=== PATIENT | female | born 1950 | race Two or more races ===

== ENCOUNTER 2024-04-08 17:53 | Inpatient (IN) | payer OTHER, MEDICAID ==
[~2024-04-08] VITALS: Ht 157.5 cm; Wt 63.6 kg
--- NOTE | 2024-04-08 18:54 | ED.PDOC ---
History of Present Illness HPI Comments 73 year old female presents to the ED with a chief complaint of abdominal pain onset today (04/08/24). Patient states she had a colostomy placed about 30 years ago due to cancer and recently noticed she was having bowel movements from rectum, she had not for 30 years due to colostomy. Daughter states patient was seen at [facility] urgent care today for abdominal pain, back pain, bowel movements, had lab work and XRAY done. Daughter states patient was told she was dehydrated, Potassium level was low, and was sent for a CT scan at [facility]. Patient was told she had inflammation of colon and rectum, was told by Dr. Crawford to come to ED. Patient rates pain /10. Denies chest pain, shortness of breath, fevers, chills, nausea, vomiting. No other symptoms or modifying factors present at this time. Chief Complaint: Wound Check Time Seen by MD: 18:26 Primary Care Provider: LUTHER Rios Notes: Medications, Allergies Allergies: Coded Allergies: NO KNOWN ALLERGIES (Unverified , 04/08/24) Information Source: Patient, Relative Mode of Arrival: Ambulatory Severity: Moderate Timing: Hours Duration: Since onset Prehospital treatment: None Past Medical History PAST MEDICAL HISTORY: Cancer Surgical History (Other): colostomy CLUB LICENSEE History: No Pertinent CLUB LICENSEE History Family History Family History: Unknown Social History Smoker: Non-Smoker Alcohol: Denies ETOH Use Drugs: Denies Drug Use Lives In: Home Constitutional: denies: chills, diaphoresis, fatigue, fever, malaise, sweats, weakness, others EENTM: denies: blurred vision, double vision, ear bleeding, ear discharge, ear drainage, ear pain, ear ringing, eye pain, eye redness, hearing loss, mouth pain, mouth swelling, nasal discharge, nose bleeding, nose congestion, nose pain, photophobia, tearing, throat pain, throat swelling, voice changes, others Respiratory: denies: cough, hemoptysis, orthopnea, SOB at rest, shortness of breath, SOB with excertion, stridor, wheezing, others Cardiovascular: denies: chest pain, dizzy spells, diaphoresis, Dyspnea on exertion, edema, irregular heart beat, left arm pain, lightheadedness, palpitations, PND, syncope, others Gastrointestinal: reports: abdominal pain; denies: abdomen distended, blood streaked bowels, constipated, diarrhea, dysphagia, difficulty swallowing, hemate mesis, melena, nausea, poor appetite, poor fluid intake, rectal bleeding, rectal pain, vomiting, others Genitourinary: denies: abnormal vagina bleeding, burning, dyspareunia, dysuria, flank pain, frequency, hematuria, incontinence, pain, , vagina discharge, urgency, others Neurological: denies: dizziness, fainting, headache, left sided numbness, left sided weakness, numbness, paresthesia, pre-existing deficit, right sided numbness, right sided weakness, seizure, speech problems, tingling, tremors, weakness, others Musculoskeletal: reports: back pain; denies: gout, joint pain, joint swelling, muscle pain, muscle stiffness, neck pain, others Integumetry: denies: bruises, change in color, change in hair/nails, dryness, laceration, lesions, lumps, rash, wounds, others Allergic/Immunocompromised: denies: Difficulty Healing, Frequent Infections, Hives, Itching, others Hematologic/Lymphatic: denies: anemia, blood clots, easy bleeding, easy bruising, swollen glands, others Endocrine: denies: excessive hunger, excessive sweating, excessive thirst, excessive urination, flushing, intolerance to cold, intolerance to heat, unexplained weight gain, unexplained weight loss, others Psychiatric: denies: anxiety, bipolar disorder, depression, hopeless, panic disorder, schizophrenia, sleepless, suicidal, others All Other Systems: Reviewed and Negative Physical Exam General Appearance: No Apparent Distress, Normal HEENT: Normal ENT Inspection, Pharynx Normal, TMs Normal Neck: Full Range of Motion, Non-Tender, Normal, Normal Inspection Respiratory: Chest Non-Tender, Lungs Clear, No Accessory Muscle Use, No Respiratory Distress, Normal Breath Sounds Cardiovascular: No Edema, No JVD, No Murmur, No Gallop, Normal Peripheral Pulses, Regular Rate/Rhythm Breast Exam: Deferred Gastrointestinal: Diffuse (tenderness ), No Organomegaly, Tenderness (diffused ) Genitalia: Deferred Pelvic: Deferred Rectal: Deferred Extremities: No calf tenderness, Normal capillary refill, Normal inspection, Normal range of motion, Non-tender, No pedal edema Musculoskeletal : Apperance: Normal Neurologic: Alert, conservation policy analyst II-XII nml as Tested, No Motor Deficits, Normal Affect, Normal Mood, No Sensory Deficits Cerebellar Function: Normal Reflexes: Normal Skin: Dry, Normal Color, Warm Lymphatic: No Adenopathy Was a procedure done? Was a procedure done?: No Differential Dx Considerations may include: Electrolyte abnormalities, gastroenteritis, colitis, viral syndrome X-Ray, Labs, Meds, VS Vital Signs Date Time Temp Pulse Resp B/P (MAP) Pulse Ox O2 Delivery O2 Flow Rate FiO2 04/09/24 00:56 55 18 129/71 04/09/24 00:40 55 18 98 Room Air* 0 21 04/09/24 00:40 98.2 55 18 129/71 (90) 98 98.2 04/08/24 18:07 97.8 79 20 181/89 (119) 95 Lab Test 04/08/24 19:00 Range/Units White Blood Count 7.2 4.4-10.8 10^3/uL Red Blood Count 4.57 4.0-5.20 10^6/uL Hemoglobin 12.6 12.2-16.2 g/dL Hematocrit 38.9 36.0-46.0 % Mean Corpuscular Volume 85.2 80.0-100.0 fL Mean Corpuscular Hemoglobin 27.6 L 28.0-32.0 pg Mean Corpuscular Hemoglobin Concent 32.4 32.0-36.0 g/dL Red Cell Distribution Width 13.4 11.8-14.3 % Platelet Count 278 140-450 10^3/uL Mean Platelet Volume 8.0 6.9-10.8 fL Neutrophils (%) (Auto) 62.5 37.0-80.0 % Lymphocytes (%) (Auto) 25.3 10.0-50.0 % Monocytes (%) (Auto) 8.7 0.0-12.0 % Eosinophils (%) (Auto) 2.7 0.0-7.0 % Basophils (%) (Auto) 0.8 0.0-2.0 % Neutrophils # (Auto) 4.5 1.6-8.6 10 ^3/uL Lymphocytes # (Auto) 1.8 0.4-5.4 10 ^3/uL Monocytes # (Auto) 0.6 0-1.3 10 ^3/uL Eosinophils # (Auto) 0.2 0-0.8 10 ^3/uL Basophils # (Auto) 0.1 0-0.2 10 ^3/uL Nucleated Red Blood Cells 0.5 % Platelet Estimate Adequate Sodium Level 140 136-145 mmol/L Potassium Level 3.1 L 3.5-5.1 mmol/L Chloride Level 107 98-107 mmol/L Carbon Dioxide Level 24 20-31 mmol/L Anion Gap 9 5-15 Blood Urea Nitrogen 24 H 9-23 mg/dL Creatinine 1.53 H 0.550-1.02 mg/dL Glomerular Filtration Rate Calc 35 >90 mL/min BUN/Creatinine Ratio 15.7 10.0-20.0 Serum Glucose 101 74-106 mg/dL Lactic Acid Level 1.4 0.4-2.0 mmol/L Calcium Level 9.6 8.7-10.4 mg/dL Current Medications Medications (Trade) Dose Ordered Sig/Ta Route Start Time Stop Time Status Last Admin Ondansetron HCl (Zofran) 4 mg ONCE ONCE IV 04/08/24 19:00 04/08/24 19:01 DC 04/09/24 00:57 Morphine Sulfate 4 mg ONCE ONCE IV 04/08/24 19:00 04/08/24 19:01 DC 04/09/24 00:56 Sodium Chloride 1,000 ml @ 1,000 mls/hr Q1H ONCE IV 04/08/24 19:00 04/08/24 19:59 DC 04/09/24 01:00 Metronidazole 100 ml @ 100 mls/hr ONCE ONCE IV 04/08/24 19:00 04/08/24 19:59 DC 04/09/24 00:57 Time of 1ST Reevaluation: 18:56 Reevaluation 1ST: Unchanged Patient Education/Counseling: Diagnosis, Treatment, Prognosis Family Education/Counseling: Diagnosis, Treatment, Prognosis Additional Information The following tests were ordered, and results were reviewed by me: BMP, CBC, UA, LA W/ REFLEX, BLOOD CULTURE Additional Information was gathered from interviewing the following independent historians: DAUGHTER I discussed treatment and results with medical personnel and: patient, DAUGHTER Departure 1 Departure Time of Disposition: 05:37 (Patient presented with abdominal pain that was concerning for possible appendicits, gastritis, cholecystitis, colitis, gastroenteritis, sbo, or orther possible surgical emergency. Data: 1. I ordered and reviewed the result of at least 3 labs including a CBC, BMP, and Urinalysis. 2. I independently interpreted the following tests: CT Abdoment and Pelvis from outside facility is concerning for diffuse colitis .Risk:This patient has a high risk of morbidity due to further diagnostic testing or treatment and may suffer from an acute abdominal process disorder. Workup reveals diffuse colitis and electrolyte abnormalities and patient should be admitted for further workup. and possible expert consultation. Patient is not septic) Impression: Primary Impression: Pancolitis Additional Impressions: Intractable abdominal pain Generalized weakness Disposition: ADMITTED INPATIENT Admit to: Med Surg Condition: Serious Critical Care Note Critical Care Time?: Yes Critical care comment: Intractable abdominal pain Authorized and Performed by: Yury Hall MD Total critical care time: Approximately 47_ minutes Due to a high probability of clinically significant, life threatening deterioration, the patient required my highest level of preparedness to intervene emergently and I personally spent this critical care time directly and personally managing the patient. This critical care time included obtaining a history; examining the patient; pulse oximetry; ordering and review of studies; arranging urgent treatment with development of a management plan; evaluation of patient's response to treatment; frequent reassessment; and, discussions with other providers. This critical care time was performed to assess and manage the high probability of imminent, life-threatening deterioration that could result in multi-organ failure. It was exclusive of separately billable procedures and treating other patients and teaching time. Please see my other sections and the rest of the note for further information on patient assessment and treatment. Stability Stability form required: No I personally scribed for YURY HALL MD ([email or web address]) on 04/08/24 at 18:54. Electronically submitted by Tala Harper ([email or web address]). I personally scribed for YURY HALL MD ([email or web address]) on 04/08/24 at 19:00. Electronically submitted by Tala Harper ([email or web address]). I personally scribed for YURY HALL MD ([email or web address]) on 04/08/24 at 19:07. El ectronically submitted by Tala Harper ([email or web address]). YURY HALL MD Apr 08, 2024 18:54
[2024-04-08 19:35] LABS: Basophils # (auto) 0.1 10 ^3/uL (0-0.2); Basophils % (auto) 0.8 % (0.0-2.0); Eosinophils # (auto) 0.2 10 ^3/uL (0-0.8); Eosinophils % (auto) 2.7 % (0.0-7.0); Hematocrit 38.9 % (36.0-46.0); Hemoglobin 12.6 g/dL (12.2-16.2); Lymphocytes # (auto) 1.8 10 ^3/uL (0.4-5.4); Lymphocytes % (auto) 25.3 % (10.0-50.0); Mean Corpuscular Hemoglobin 27.6 pg (28.0-32.0); Mean Corpuscular Hgb Conc. 32.4 g/dL (32.0-36.0); Mean Corpuscular Volume 85.2 fL (80.0-100.0); Monocytes # (auto) 0.6 10 ^3/uL (0-1.3); Monocytes % (auto) 8.7 % (0.0-12.0); Neutrophils # (auto) 4.5 10 ^3/uL (1.6-8.6); Neutrophils % (auto) 62.5 % (37.0-80.0); Nucleated Red Blood Cells % 0.5 %; Platelet Count (auto) 278 10^3/uL (140-450); Red Blood Cells 4.57 10^6/uL (4.0-5.20); Red Cell Distribution Width 13.4 % (11.8-14.3); White Blood Cell 7.2 10^3/uL (4.4-10.8)
[2024-04-08 19:47] LABS: Sodium 140 mmol/L (136-145)
[2024-04-08 19:48] LABS: Anion Gap 9 (5-15); Calcium 9.6 mg/dL (8.7-10.4); Carbon Dioxide 24 mmol/L (20-31)
[2024-04-08 19:53] LABS: BUN/Creatinine Ratio 15.7 (10.0-20.0); Glucose 101 mg/dL (74-106)
[2024-04-08 19:54] LABS: Blood Urea Nitrogen 24 mg/dL (9-23); Chloride 107 mmol/L (98-107); Potassium 3.1 mmol/L (3.5-5.1)
[2024-04-08 20:22] LABS: Platelet Estimate Adequate
[2024-04-09 00:40] VITALS: PULSE 55; RESP 18; O2SAT 98
[2024-04-09] MEDS: MORPHINE SULFATE 4 MG/ML SYR/VIAL IV ONE (00:56)
[2024-04-09] MEDS: ONDANSETRON HCL 4 MG/2 ML VIAL IV ONE (00:57)
[2024-04-09] MEDS: metroNIDAZOLE 500MG/100ML 100 ML IV ONE (00:57)
[2024-04-09] MEDS: SODIUM CHLORIDE 0.9% 1,000 ML IV ONE (01:00)
[2024-04-09] MEDS ORDERED: NITROGLYCERIN 0.4 MG SL TAB SL PRN (01:30)
[2024-04-09] MEDS ORDERED: ONDANSETRON HCL 4 MG/2 ML VIAL IV PRN (01:30)
[2024-04-09] MEDS ORDERED: MORPHINE SULFATE INJ 2 MG/ml SYRG IV PRN (01:30)
[2024-04-09] MEDS ORDERED: DOCUSATE SOD 100 MG CAP PO PRN (01:30)
[2024-04-09] MEDS: SODIUM CHLORIDE 0.9% 1,000 ML IV SCH (01:30)
[2024-04-09] MEDS: POTASSIUM CHL 20 Meq TABLET PO ONE (03:01)
[2024-04-09] MEDS: ceFAZolin 2 GM/D5W50ml 50 ML IV ONE (03:05)
--- NOTE | 2024-04-09 04:07 | DVHHP2 ---
LIANNE GONZALEZ [employer] SYSTEM ADMINISTRATOR 04/09/24 0407: History of Present Illness Reason for Visit: Rectal discharge, Sent in from urgent care History of Present Illness Information in this HPI is limited due to the patient's cognitive status. It is acquired with the assistance of the patient's daughters. 73-year-old female with past medical history of hypertension, dementia, lower abdominal colostomy was sent in from urgent care . Patient went into urgent care with complaints of rectal BM / discharge and lower abdominal discomfort. Patient has had a colostomy for 30 years due to colon cancer. Patient was treated with IV fluids at urgent care. And then sent to [facility] radiology for imaging. CT of the abdomen and pelvis presented severe pancolitis and proctitis. Urgent Care paperwork stated: Urgent care physician had communicated with Dr. Yvette rios regarding inpatient admission. 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 GI: Other (Colostomy, colon cancer) Heme/Onc: Cancer Smoke: No ALCOHOL: none Drugs: None Lives: with Family Review of Systems Constitutional: No: Fever, Chills, Sweats, Weakness, Malaise, Other Eyes: No: Pain, Vision change, Conjunctivae inflammation, Eyelid inflammation, Other, Redness ENT: No: Ear pain, Ear discharge, Nose pain, Nose discharge, Nose congestion, Mouth pain, Mouth swelling, Throat pain, Throat swelling, Other Respiratory: No: Cough, Dry, Shortness of breath, SOB with excertion, Wheezing, Hemoptysis, Pleuritic Pain, Sputum, Wheezing, Other Gastrointestinal: Abdominal Pain, Other (Bowel movement through colostomy and rectum); No: Nausea, Vomiting, Diarrhea, Constipation, Melena, Hematochezia Genitourinary: No Dysuria, No Frequency, No Incontinence, No Hematuria, No Retention, No Other Musculoskeletal: No: other, neck pain, shoulder pain, arm pain, back pain, hand pain, leg pain, foot pain Skin: No: Rash, Lesions, Jaundice, Bruising, Other Neurological: No: Weakness, Numbness, Incoordination, Change in speech, Confusion, Seizures, Other Allergies: Coded Allergies: NO KNOWN ALLERGIES (Unverified , 04/08/24) Medications Current Medications Medications Dose Ordered Sig/Ta Route Start Time Stop Time Status Last Admin Dose Admin Sodium Chloride 1,000 ml @ 60 mls/hr [id number] IV 04/09/24 01:30 Docusate Sodium 100 mg BIDPRN PRN PO 04/09/24 01:30 Acetaminophen 650 mg Q6HP PRN PO 04/09/24 01:30 Ondansetron HCl 4 mg Q4HP PRN IV 04/09/24 01:30 Nitroglycerin 0.4 mg Q5MINP PRN SL 04/09/24 01:30 Morphine Sulfate 2 mg Q30M PRN IV 04/09/24 01:30 Metronidazole 100 ml @ 100 mls/hr Q8HR IV 04/09/24 06:00 Ceftriaxone Sodium 50 ml @ 100 mls/hr DAILY IV 04/09/24 10:00 Donepezil HCl 5 mg DAILY PO 04/09/24 10:00 Nifedipine 30 mg DAILY PO 04/09/24 10:00 Exam Vital Signs Vital Signs Date Time Temp Pulse Resp B/P (MAP) Pulse Ox O2 Delivery O2 Flow Rate FiO2 04/09/24 00:56 55 18 129/71 04/09/24 00:40 98 Room Air* 0 21 04/09/24 00:40 98.2 98.2 General Appearance: Alert (At baseline, responds appropriately), Cooperative, mild distress HEENT: Atraumatic, PERRLA, EOMI Respiratory: Clear to auscultation, Normal air movement Cardiovascular: Regular rate, Normal S1, Normal S2 Abdominal: Soft, Other (Diffuse tenderness) Extremities: No clubbing, No cyanosis, No edema Skin: No rashes, No breakdown Neuro: Normal gait, Normal speech, Strength at 5/5 X4 ext Psych/Mental Status: Mental status NL, Mood NL Labs/Xrays Labs Test 04/08/24 19:00 Range/Units White Blood Count 7.2 4.4-10.8 10^3/uL Red Blood Count 4.57 4.0-5.20 10^6/uL Hemoglobin 12.6 12.2-16.2 g/dL Hematocrit 38.9 36.0-46.0 % Mean Corpuscular Volume 85.2 80.0-100.0 fL Mean Corpuscular Hemoglobin 27.6 L 28.0-32.0 pg Mean Corpuscular Hemoglobin Concent 32.4 32.0-36.0 g/dL Red Cell Distribution Width 13.4 11.8-14.3 % Platelet Count 278 140-450 10^3/uL Mean Platelet Volume 8.0 6.9-10.8 fL Neutrophils (%) (Auto) 62.5 37.0-80.0 % Lymphocytes (%) (Auto) 25.3 10.0-50.0 % Monocytes (%) (Auto) 8.7 0.0-12.0 % Eosinophils (%) (Auto) 2.7 0.0-7.0 % Basophils (%) (Auto) 0.8 0.0-2.0 % Neutrophils # (Auto) 4.5 1.6-8.6 10 ^3/uL Lymphocytes # (Auto) 1.8 0.4-5.4 10 ^3/uL Monocytes # (Auto) 0.6 0-1.3 10 ^3/uL Eosinophils # (Auto) 0.2 0-0.8 10 ^3/uL Basophils # (Auto) 0.1 0-0.2 10 ^3/uL Nucleated Red Blood Cells 0.5 % Platelet Estimate Adequate Sodium Level 140 136-145 mmol/L Potassium Level 3.1 L 3.5-5.1 mmol/L Chloride Level 107 98-107 mmol/L Carbon Dioxide Level 24 20-31 mmol/L Anion Gap 9 5-15 Blood Urea Nitrogen 24 H 9-23 mg/dL Creatinine 1.53 H 0.550-1.02 mg/dL Glomerular Filtration Rate Calc 35 >90 mL/min BUN/Creatinine Ratio 15.7 10.0-20.0 Serum Glucose 101 74-106 mg/dL Lactic Acid Level 1.4 0.4-2.0 mmol/L Calcium Level 9.6 8.7-10.4 mg/dL Assessment/Plan Assessment/Plan Severe Pancolitis / proctitis JOHNNIE unknown CKD Hypokalemia Hypertension Hx dementia Plan Admit medical floor Consult ID. IV ABX. Blood cultures pending Gastroenterology consult. Monitor BMP. Trend BUN/creatinine. Correct electrolytes as needed. Continue home medication. Clear liquid diet GI ppx protonix / DVT ppx scd Plan discussed with: Patient, Daughter My Orders Orders - LIANNE GONZALEZ NP Procedure Category Date Status Time Admit ADMIT 04/09/24 Transmitted 01:23 Code Status CODE 04/09/24 Transmitted 01:23 Vital Signs DAGMAR 04/09/24 In Process 01:23 Review Orders With DAGMAR 04/09/24 In Process Adm. 01:23 Encourage Activity As DAGMAR 04/09/24 In Process Tolerate 01:23 Sodium Chloride 0.9% PHA 04/09/24 In Process 01:30 Oxygen By Face Mask RT 04/09/24 Transmitted 01:23 Docusate Sodium PHA 04/09/24 In Process Capsule (Colace 01:30 Acetaminophen Tablet PHA 04/09/24 In Process (Tylenol Tablet) 01:30 Notify Of Changes DAGMAR 04/09/24 In Process From Base 01:23 Advance Directive DAGMAR 04/09/24 In Process 01:23 Basic Metabolic Panel LAB 04/09/24 Logged 05:00 Basic Metabolic Panel LAB 04/10/24 Verified 05:00 Basic Metabolic Panel LAB 04/11/24 Verified 05:00 Basic Metabolic Panel LAB 04/12/24 Verified 05:00 Basic Metabolic Panel LAB 04/13/24 Verified 05:00 Complete Blood Count LAB 04/09/24 Logged 05:00 Complete Blood Count LAB 04/10/24 Verified 05:00 Complete Blood Count LAB 04/11/24 Verified 05:00 Complete Blood Count LAB 04/12/24 Verified 05:00 Complete Blood Count LAB 04/13/24 Verified 05:00 Patient Condition ORDERS 04/09/24 Transmitted 01:23 Allergies DAGMAR 04/09/24 In Process 01:23 Ondansetron Hcl PHA 04/09/24 In Process (Zofran) 01:30 Sequential DAGMAR 04/09/24 In Process Compression Device Nitroglycerin PHA 04/09/24 In Process Sublingual (Ntrostat 01:30 Morphine Sulfate PHA 04/09/24 In Process Injection 01:30 Stat Ekg For Chest DAGMAR 04/09/24 In Process Pain 01:23 Notify Of Changes DAGMAR 04/09/24 In Process From Base 01:23 Industrial Machine Operator For DAGMAR 04/09/24 In Process 24 Hours 01:23 Emergency Dysrhythmia DAGMAR 04/09/24 In Process Protocol 01:23 Rhythm Strips Once DAGMAR 04/09/24 In Process Every Shift 01:23 Oxygen By Nasal RT 04/09/24 Transmitted Cannula 01:23 Metronidazole PHA 04/09/24 In Process 500mg/100ml (Flagyl 06:00 Ceftriaxone 1gm/50ml PHA 04/09/24 In Process D5w (Rocephin) 10:00 Clear Liq Diet DIET 04/09/24 Transmitted Breakfast Donepezil Tablet PHA 04/09/24 In Process (Aricept Tablet) 10:00 Nifedipine Er PHA 04/09/24 In Process (Procardia Xl 10:00 *[facility] CONS 04/09/24 Transmitted 01:23 Date of Service: Apr 09, 2024 Billing Provider: MANDIE LONG MD Common Visit Codes: NOT BILLABLE MANDIE LONG MD 04/09/24 1144: Review of Systems Allergies: Coded Allergies: NO KNOWN ALLERGIES (Unverified , 04/08/24) Assessment/Plan Assessment/Plan Patient chart is reviewed and discussed with nurse practitioner. I agree with his evaluation, documentation, assessment and care plan as outlined. Plan discussed with: Other LIANNE GONZALEZ NP Apr 09, 2024 04:07 MANDIE LONG MD Apr 09, 2024 11:44
[2024-04-09] MEDS: metroNIDAZOLE 500MG/100ML 100 ML IV SCH (06:11)
[2024-04-09 06:56] LABS: Basophils # (auto) 0 10 ^3/uL (0-0.2); Basophils % (auto) 0.3 % (0.0-2.0); Eosinophils # (auto) 0.1 10 ^3/uL (0-0.8); Eosinophils % (auto) 1.6 % (0.0-7.0); Hemoglobin 12.2 g/dL (12.2-16.2); Lymphocytes # (auto) 1.7 10 ^3/uL (0.4-5.4); Mean Corpuscular Hemoglobin 27.6 pg (28.0-32.0); Mean Corpuscular Hgb Conc. 32.2 g/dL (32.0-36.0); Mean Corpuscular Volume 85.9 fL (80.0-100.0); Monocytes # (auto) 0.5 10 ^3/uL (0-1.3); Monocytes % (auto) 7.4 % (0.0-12.0); Neutrophils # (auto) 3.9 10 ^3/uL (1.6-8.6); Neutrophils % (auto) 63.7 % (37.0-80.0); Nucleated Red Blood Cells % 0.1 %; Platelet Count (auto) 319 10^3/uL (140-450); Red Blood Cells 4.42 10^6/uL (4.0-5.20); Red Cell Distribution Width 13.7 % (11.8-14.3); White Blood Cell 6.1 10^3/uL (4.4-10.8)
[2024-04-09 07:06] LABS: Anion Gap 12 (5-15); Carbon Dioxide 25 mmol/L (20-31); Chloride 106 mmol/L (98-107); Sodium 143 mmol/L (136-145)
[2024-04-09 07:07] LABS: Calcium 9.9 mg/dL (8.7-10.4)
[2024-04-09 07:12] LABS: BUN/Creatinine Ratio 16.4 (10.0-20.0); Blood Urea Nitrogen 22 mg/dL (9-23); Glucose 97 mg/dL (74-106)
[2024-04-09 07:13] LABS: Potassium 3.4 mmol/L (3.5-5.1)
[2024-04-09] MEDS: DONEPEZIL HYDROCHLORIDE 5 MG TAB PO SCH (10:00)
[2024-04-09] MEDS: NIFEdipine ER 30 MG TAB PO SCH (10:00)
[2024-04-09] MEDS: cefTRIAXone 1GM/50ML D5W 50 ML IV SCH (11:09)
[2024-04-09] MEDS: POTASSIUM EFFERVESENT TAB 25 MEQ PO ONE (13:08)
--- NOTE | 2024-04-09 19:26 | DVHINCON2 ---
GASTROENTEROLOGY CONSULTATION REASON FOR CONSULTATION: Evaluation of pancolitis. HISTORY OF PRESENT ILLNESS: The patient is a 73-year-old -[place] female with a past medical history significant for hypertension, type 2 diabetes, chronic kidney disease stage 3, thyroid nodule and supposed Crohn's disease diagnosed in 1979, status post permanent diverting colostomy, who was admitted for evaluation of acute onset abdominal pain and diarrhea for the past 3 weeks. The patient's daughter who is at bedside is the primary historian. The patient states that she has been experiencing severe diarrhea, both through the colostomy as opposed to the rectum for the past 3 weeks. Symptoms have been associated with some abdominal pain. The patient was seen in a local urgent care and given IV fluids. She was also referred to a local imaging center for a CT scan that showed severe pancolitis and proctitis. The patient was subsequently admitted to the hospital, where she was found to have a completely normal CBC. Basic metabolic panel was also unremarkable aside from a renal function of 1.53, BUN of 24. The patient states that she has a history of Crohn's, but has not been on medication for over 40 years. She reportedly had some sort of mass that required her to have a permanent diverting colostomy. She was seen in the outpatient setting in 11/2023 and recommended to undergo a diagnostic colonoscopy, which she deferred and decided not to do. Gastroenterology service has been asked for input regarding her symptoms. DRUG ALLERGIES: None listed. HOME MEDICATIONS: She is on eyedrops, donepezil, nifedipine, timolol, dorzolamide eyedrops, prednisolone eye drops, and moxifloxacin. PAST MEDICAL HISTORY: Hypertension, glaucoma, cataracts, prediabetes, memory loss, chronic kidney disease stage 3, supposed Crohn's disease, thyroid nodule. PAST SURGICAL HISTORY: Permanent diverting colostomy in , total hysterectomy, thyroidectomy, colonoscopy. Her last one was in the as well as the EGD in the . FAMILY HISTORY: Mother had kidney cancer. SOCIAL HISTORY: The patient denies drugs, alcohol, tobacco. REVIEW OF SYSTEMS: A 12-point review of systems as stated above in the HPI. Please see above for further details of pertinent positives. PHYSICAL EXAMINATION: VITAL SIGNS: Temperature 98, heart rate 62, respirations 20, blood pressure 139/59, O2 saturation 96%. GENERAL: This is a 73-year-old -[place]iber[place] female, no acute distress. She is awake, alert, oriented x3, sitting upright. HEENT: Unremarkable. CARDIOVASCULAR: Regular rhythm. RESPIRATORY: Clear to auscultation. GASTROINTESTINAL: Soft, nontender, nondistended. She has a diverting colostomy that appears to be intact, very small amount of liquid stool. EXTREMITIES: No clubbing, no cyanosis or edema. LABORATORY DATA: Basic metabolic panel within normal limits. BUN 22, creatinine 1.34. CBC is within normal limits. Imaging study from [facility] showed pancolitis and proctitis. ASSESSMENT: * Nonspecific pancolitis with proctitis. Differential diagnosis includes 3 mm colitis or pearson ulcerative colitis. * Acute renal failure. * Dehydration. * Hypertension. * Prediabetes. * Chronic kidney disease, stage 3. RECOMMENDATIONS: * Aggressive volume resuscitation. * Obtain stool culture to exclude infectious etiology. * Check fecal calprotectin. * If the patient's infectious etiologies are unremarkable, the patient may benefit from steroid therapy once a fecal calprotectin was obtained and infectious etiology ruled out. If the patient does not improve with other antibiotic or steroid measures, the patient may need to undergo a diagnostic colonoscopy through the stoma. DO MADINA Whitt TID: [id number] RECEIPT: [id number]
[2024-04-09 20:00] VITALS: PULSE 62; RESP 13; O2SAT 97
[2024-04-09] MEDS: MAGNESIUM SULFATE 1GM/100ML 100 ML IV SCH (22:28)
[2024-04-09] MEDS: POTASSIUM EFFERVESENT TAB 25 MEQ PO SCH (22:48)
[2024-04-10 06:45] LABS: Basophils # (auto) 0 10 ^3/uL (0-0.2); Basophils % (auto) 0.2 % (0.0-2.0); Eosinophils # (auto) 0.1 10 ^3/uL (0-0.8); Eosinophils % (auto) 1.8 % (0.0-7.0); Hematocrit 35.1 % (36.0-46.0); Hemoglobin 11.8 g/dL (12.2-16.2); Lymphocytes # (auto) 1.1 10 ^3/uL (0.4-5.4); Lymphocytes % (auto) 21.4 % (10.0-50.0); Mean Corpuscular Hgb Conc. 33.6 g/dL (32.0-36.0); Mean Corpuscular Volume 86.3 fL (80.0-100.0); Monocytes # (auto) 0.4 10 ^3/uL (0-1.3); Monocytes % (auto) 8.1 % (0.0-12.0); Neutrophils # (auto) 3.6 10 ^3/uL (1.6-8.6); Neutrophils % (auto) 68.5 % (37.0-80.0); Nucleated Red Blood Cells % 0.1 %; Platelet Count (auto) 248 10^3/uL (140-450); Red Blood Cells 4.07 10^6/uL (4.0-5.20); Red Cell Distribution Width 13.8 % (11.8-14.3); White Blood Cell 5.2 10^3/uL (4.4-10.8)
[2024-04-10 06:53] LABS: Chloride 105 mmol/L (98-107); Potassium 3.9 mmol/L (3.5-5.1); Sodium 141 mmol/L (136-145)
[2024-04-10 06:54] LABS: Anion Gap 11 (5-15); Carbon Dioxide 25 mmol/L (20-31)
[2024-04-10 06:59] LABS: BUN/Creatinine Ratio 11.7 (10.0-20.0); Blood Urea Nitrogen 14 mg/dL (9-23); Glucose 85 mg/dL (74-106)
[2024-04-10 08:00] VITALS: PULSE 57; RESP 14; O2SAT 100
[2024-04-10] MEDS: ENOXAPARIN SOD 40 MG/0.4 ML SYRINGE SC SCH (09:34)
[2024-04-10 10:27] LABS: Urine Bacteria None Seen /hpf (None Seen); Urine Blood 1+ /uL (Negative); Urine Clarity Turbid (Clear); Urine Color Light-Yellow (Yellow); Urine Hyaline Cast FEW /lpf (0 - 2); Urine Protein, UAD Negative (Negative); Urine Squamous Epithelial Cell FEW /hpf (<5); Urine Urobilinogen Normal (Negative); Urine WBC 1 /HPF (0-5)
--- NOTE | 2024-04-10 14:39 | DVHPN2 ---
Progress Note - Dictate Date Seen: Apr 10, 2024 Medical Necessity Reason Pt with a Central, PICC or Fol: No Subjective Still having liquidy stools today. Stool cultures were sent results pending. Evaluated by Gastroenterology. vital signs Vital Sign Date Time Temp Pulse Resp B/P (MAP) Pulse Ox O2 Delivery O2 Flow Rate FiO2 04/10/24 09:35 139/63 04/10/24 08:00 57 14 100 Room Air* 0 21 04/10/24 08:00 98.0 98.0 Total Intake and Output 04/09/24 04/09/24 04/10/24 15:00 23:00 07:00 Intake Total 50 ml 190 ml 620 ml Balance 50 ml 190 ml 620 ml medications Current Medications Medications Dose Ordered Sig/Ta Route Start Time Stop Time Status Last Admin Dose Admin Sodium Chloride 1,000 ml @ 60 mls/hr [id number] IV 04/09/24 01:30 04/10/24 10:50 60 MLS/HR Docusate Sodium 100 mg BIDPRN PRN PO 04/09/24 01:30 Acetaminophen 650 mg Q6HP PRN PO 04/09/24 01:30 Ondansetron HCl 4 mg Q4HP PRN IV 04/09/24 01:30 Nitroglycerin 0.4 mg Q5MINP PRN SL 04/09/24 01:30 Morphine Sulfate 2 mg Q30M PRN IV 04/09/24 01:30 Metronidazole 100 ml @ 100 mls/hr Q8HR IV 04/09/24 06:00 04/10/24 14:35 100 MLS/HR Ceftriaxone Sodium 50 ml @ 100 mls/hr DAILY IV 04/09/24 10:00 04/10/24 09:34 100 MLS/HR Donepezil HCl 5 mg DAILY PO 04/09/24 10:00 04/10/24 09:34 5 MG Nifedipine 30 mg DAILY PO 04/09/24 10:00 04/10/24 09:35 30 MG Enoxaparin Sodium 40 mg DAILY SC 04/10/24 10:00 04/10/24 09:34 40 MG Potassium Bicarbonate 50 meq BID PO 04/09/24 22:00 04/10/24 09:37 50 MEQ objective Sitting at the edge of the bed. Daughter is at bedside. Alert awake oriented x3. HEENT neck supple no JVD. Heart regular rate and rhythm S1-S2. Lungs without rales wheezes. Abdomen soft nontender positive bowel sounds. Extremities no edema positive pulses laboratory and microbiology Laboratory Tests 04/10/24 05:27 Test 04/10/24 05:27 Range/Units Serum Glucose 85 74-106 mg/dL Assessment/Plan Continue antibiotics for possible enterocolitis infectious etiology. Wait for stool cultures. Given she was tolerating liquid diet I will advance to regular diet. Given continued to have liquid stools I will add Questran to bulk the stool. Otherwise continue rest of supportive care and treatment. Her further clinical management per clinical course and recommendations from the power transmission engineer. Discussed with the patient and daughter at bedside regarding care plan. Problems(with codes): (1) Intractable abdominal pain (2) Pancolitis (3) Generalized weakness Plan discussed with: Patient, Daughter, Other MANDIE LONG MD Apr 10, 2024 14:39
[2024-04-10] MEDS: CHOLESTYRAMINE 4 GM POWDER PO SCH (18:21)
[2024-04-10 19:56] VITALS: PULSE 57; RESP 14; O2SAT 100
[2024-04-10] MEDS: traZODone HCL 50 MG TAB PO SCH (22:00)
[2024-04-10 23:17] VITALS: BP 140/58; PULSE 66; RESP 19; TEMP 97.8; O2SAT 97
[2024-04-11 01:00] VITALS: BP 121/59; PULSE 56; RESP 18; TEMP 98; O2SAT 96
[2024-04-11 06:21] LABS: Anion Gap 9 (5-15); Carbon Dioxide 26 mmol/L (20-31); Potassium 4.1 mmol/L (3.5-5.1); Sodium 143 mmol/L (136-145)
[2024-04-11 06:22] LABS: Calcium 9.7 mg/dL (8.7-10.4); Chloride 108 mmol/L (98-107)
[2024-04-11 06:24] LABS: Basophils # (auto) 0 10 ^3/uL (0-0.2); Basophils % (auto) 0.5 % (0.0-2.0); Eosinophils # (auto) 0.1 10 ^3/uL (0-0.8); Eosinophils % (auto) 2.8 % (0.0-7.0); Hemoglobin 12.3 g/dL (12.2-16.2); Lymphocytes % (auto) 20.1 % (10.0-50.0); Mean Corpuscular Hemoglobin 27.9 pg (28.0-32.0); Mean Corpuscular Hgb Conc. 32.4 g/dL (32.0-36.0); Mean Corpuscular Volume 86.3 fL (80.0-100.0); Monocytes # (auto) 0.4 10 ^3/uL (0-1.3); Monocytes % (auto) 7.7 % (0.0-12.0); Neutrophils # (auto) 3.3 10 ^3/uL (1.6-8.6); Neutrophils % (auto) 68.9 % (37.0-80.0); Nucleated Red Blood Cells % 0.1 %; Platelet Count (auto) 274 10^3/uL (140-450); Red Cell Distribution Width 13.4 % (11.8-14.3); White Blood Cell 4.8 10^3/uL (4.4-10.8)
[2024-04-11 06:27] LABS: BUN/Creatinine Ratio 9.8 (10.0-20.0); Blood Urea Nitrogen 11 mg/dL (9-23); Glucose 81 mg/dL (74-106)
[2024-04-11 08:00] VITALS: PULSE 61; RESP 16; O2SAT 98
[2024-04-11 09:00] VITALS: BP 125/61; PULSE 61; RESP 16; TEMP 98.1; O2SAT 98
[2024-04-11] MEDS: ACETAMINOPHEN 325 MG TAB PO PRN (11:12)
[2024-04-11] MEDS ORDERED: CHOL4POW44 PO (13:34)
[2024-04-11] MEDS ORDERED: METR-344 PO (13:35)
--- NOTE | 2024-04-11 13:36 | DVHDS2 ---
Discharge Summary Date of Admission Apr 09, 2024 at 01:23 Date of Discharge: Apr 11, 2024 Labs/Diagnostic Data: Laboratory Results Test 04/11/24 05:06 04/10/24 10:00 04/09/24 13:59 04/08/24 19:00 White Blood Count 4.8 10^3/uL (4.4-10.8) Red Blood Count 4.40 10^6/uL (4.0-5.20) Hemoglobin 12.3 g/dL (12.2-16.2) Hematocrit 38.0 % (36.0-46.0) Mean Corpuscular Volume 86.3 fL (80.0-100.0) Mean Corpuscular Hemoglobin 27.9 pg (28.0-32.0) Mean Corpuscular Hemoglobin Concent 32.4 g/dL (32.0-36.0) Red Cell Distribution Width 13.4 % (11.8-14.3) Platelet Count 274 10^3/uL (140-450) Mean Platelet Volume 8.1 fL (6.9-10.8) Neutrophils (%) (Auto) 68.9 % (37.0-80.0) Lymphocytes (%) (Auto) 20.1 % (10.0-50.0) Monocytes (%) (Auto) 7.7 % (0.0-12.0) Eosinophils (%) (Auto) 2.8 % (0.0-7.0) Basophils (%) (Auto) 0.5 % (0.0-2.0) Neutrophils # (Auto) 3.3 10 ^3/uL (1.6-8.6) Lymphocytes # (Auto) 1.0 10 ^3/uL (0.4-5.4) Monocytes # (Auto) 0.4 10 ^3/uL (0-1.3) Eosinophils # (Auto) 0.1 10 ^3/uL (0-0.8) Basophils # (Auto) 0 10 ^3/uL (0-0.2) Nucleated Red Blood Cells 0.1 % Sodium Level 143 mmol/L (136-145) Potassium Level 4.1 mmol/L (3.5-5.1) Chloride Level 108 mmol/L (98-107) Carbon Dioxide Level 26 mmol/L (20-31) Anion Gap 9 (5-15) Blood Urea Nitrogen 11 mg/dL (9-23) Creatinine 1.12 mg/dL (0.550-1.02) Glomerular Filtration Rate Calc 52 mL/min (>90) BUN/Creatinine Ratio 9.8 (10.0-20.0) Serum Glucose 81 mg/dL (74-106) Calcium Level 9.7 mg/dL (8.7-10.4) Urine Color Light-yellow (Yellow) Urine Clarity Turbid (Clear) Urine pH 5.0 (5.0-9.0) Urine Specific [place] 1.020 (1.001-1.035) Urine Protein Negative (Negative) Urine Ketones 1+ (Negative) Urine Blood 1+ /uL (Negative) Urine Nitrite Negative (Negative) Urine Bilirubin Negative (Negative) Urine Urobilinogen Normal mg/dL (Negative) Urine Leukocyte Esterase Trace /uL (Negative) Urine RBC 3 /hpf (0 - 4) Urine Microscopic WBC 1 /HPF (0-5) Urine Squamous Epithelial Cells Few /hpf (<5) Urine Uric Acid Crystals Moderate /hpf (None Seen) Urine Bacteria None seen /hpf (None Seen) Urine Hyaline Casts Few /lpf (0 - 2) Urine Glucose Normal mg/dL (Normal) Stool for White Cells Rare Platelet Estimate Adequate Lactic Acid Level 1.4 mmol/L (0.4-2.0) Other Laboratory Tests 04/11/24 05:06 Brief Hx & Hospital Course: Information in this HPI is limited due to the patient's cognitive status. It is acquired with the assistance of the patient's daughters. 73-year-old female with past medical history of hypertension, dementia, lower abdominal colostomy was sent in from urgent care . Patient went into urgent care with complaints of rectal BM / discharge and lower abdominal discomfort. Patient has had a colostomy for 30 years due to colon cancer. Patient was treated with IV fluids at urgent care. And then sent to [facility] for imaging. CT of the abdomen and pelvis presented severe pancolitis and proctitis. Urgent Care paperwork stated: Urgent care physician had communicated with Dr. Yvette rios regarding inpatient admission. At this time there are no additional complaints. She is admitted and evaluated by manager metrology. Patient is stool cultures are negative for any growth for any infections. C diff is also ruled out. Patient had remote history of inflammatory bowel disease. Patient in the hospital received IV fluids empiric IV antibiotics and Questran to bulk the stool given her liquid stools. I have talked with the patient's daughters at bedside during this hospitalization/day of discharge regarding her stool cultures in the fact that patient has not had any colonoscopy she was advised to follow up with the manager metrology for colonoscopy and biopsy rule out inflammatory bowel disease. I have told them if she does have inflammatory bowel disease then she needs to be treated appropriately with steroids and other medications as opposed to antibiotics. Patient verbalized understanding of this and agreed to have follow up with GI for further evaluation managing management including colonoscopy as mentioned. Meantime while in the hospital patient is clinically feeling better. No abdominal pain. Stool output slightly improved through the ostomy. Therefore it is felt she could be safely discharged home with outpatient follow up. Patient is advised to be compliant with the Questran to bulk the stool to minimize liquid stool. Patient's daughters have verbalized understanding of this, verbalized understanding over hospital diagnosis, treatment she received, discharge medications, discharge instructions and agree with the discharge follow-up plan of care. Consults/Reason for consult ASSESSMENT: * Nonspecific pancolitis with proctitis. Differential diagnosis includes 3 mm colitis or pearson ulcerative colitis. * Acute renal failure. * Dehydration. * Hypertension. * Prediabetes. * Chronic kidney disease, stage 3. RECOMMENDATIONS: * Aggressive volume resuscitation. * Obtain stool culture to exclude infectious etiology. * Check fecal calprotectin. * If the patient's infectious etiologies are unremarkable, the patient may benefit from steroid therapy once a fecal calprotectin was obtained and infectious etiology ruled out. If the patient does not improve with other antibiotic or steroid measures, the patient may need to undergo a diagnostic colonoscopy through the stoma. Blane Le, AB/CELESTINO Condition at Discharge: Stable Final Diagnosis/Problems List Diarrhea noninfectious secondary to colon surgery with a history of colostomy bag, nonspecific pancolitis rule out inflammatory bowel disease Discharge Disposition: Home Discharge Instruct/Medications Diet: Consistent carbohydrate, Cardiac 2g Na,low cholest Activity: No Restrictions, As Tolerated Follow Up/Referral: Gastro group/GI doctor after two weeks for elective colonoscopy for further evaluation of diarrhea/inflammatory bowel disease Medications: As prescribed and home medications New Medications: Acetaminophen W/ Codeine (Acetaminophen/Codeine #2) 1 Tab Tab 1 TAB PO BIDPRN PRN, #10 TAB Cholestyramine Light (Cholestyramine Light) 4 Gm Pow 4 GM PO TID, #20 POW Metronidazole (Flagyl) 500 Mg Tab 1 TAB PO BID, #10 TAB Discharge Statement: "Patient was advised to return to the ER or call 911 if any headaches, dizziness, shortness of breath, chest pain, abdominal pain, bleeding, fevers, or worsening of medical condition. Patient was counseled about treatment plan, medications, possible side effects, patientverbalized understanding. All questions were answered to the best of my ability. This discharge took greater then 30 minutes in planning, reviewing documentation, counseling the patient, and discussing with other team members." ASSESSMENT ASSESSMENT Assessment Diarrhea noninfectious secondary to colon surgery with a history of colostomy MANDIE Castillo MD Apr 11, 2024 13:36
[2024-04-11] MEDS ORDERED: ACET300T49 PO (13:52)
--- NOTE | 2024-04-11 14:45 | DVH ---
INDICATION: back pain COMPARISON: None TECHNIQUE: 4 views of the lumbar spine were obtained. FINDINGS: The lumbar vertebral alignment is normal. The intervertebral disc spaces are well-maintained. No significant facet arthropathy is noted. No acute fracture, vertebral compression deformity or aggressive osseous lesions. The paravertebral soft tissues are grossly unremarkable. IMPRESSION: No acute fracture.
--- NOTE | 2024-04-11 14:46 | DVH ---
EXAM: XY PELVIS AP CLINICAL INDICATION: back pain TECHNIQUE: XY PELVIS AP Comparison: None FINDINGS/IMPRESSION: There is no evidence of acute fracture or dislocation. The visualized joint space is well maintained. The alignment is anatomical. There is no radiopaque foreign body.
[2024-04-11 16:51] VITALS: BP 139/63; RESP 16; TEMP 36.7; O2SAT 98
== END 2024-04-11 19:57 | disposition home health service (06) | DRG 391 ==
LOC: ER 17:53 → OVERFLOW 04-09 01:23 → WEST WING 04-10 23:05
PROVIDERS: ADMIT Hospitalist; ATTEND Hospitalist
DX: K52.9 Noninfective gastroenteritis and colitis, unspecified (principal); N17.0 Acute kidney failure with tubular necrosis; E87.6 Hypokalemia; E86.0 Dehydration; N18.30 Chronic kidney disease, stage 3 unspecified; I12.9 Hypertensive chronic kidney disease with stage 1 through stage 4 chronic kidney disease, or unspecified chronic kidney disease; F03.90 Unspecified dementia, unspecified severity, without behavioral disturbance, psychotic disturbance, mood disturbance, and anxiety; K62.89 Other specified diseases of anus and rectum; R73.03 Prediabetes; Z93.3 Colostomy status; Z90.710 Acquired absence of both cervix and uterus; Z85.038 Personal history of other malignant neoplasm of large intestine; Z80.51 Family history of malignant neoplasm of kidney; Z79.899 Other long term (current) drug therapy
CPT/HCPCS: 36415; 72100; 72170; 80048; 81001; 83605; 85025; 85048; 87040; 87045; 87427; 87493; 99291; G0378; J2405; J3490